=== PATIENT | female | born 1950 | race Caucasian/White ===

== ENCOUNTER → 2018-07-29 11:08 | Outpatient (CLI) | payer MEDICARE, OTHER, SELFPAY ==
--- NOTE | 2018-07-29 | DI.RAD.S_ITS ---
PROCEDURE: XR LUMBAR SPINE 6V W BENDING INDICATIONS: Pain in left hip TECHNIQUE: 7 views of the lumbar spine acquired. COMPARISON: None. FINDINGS: Bones: 5 nonrib-bearing vertebrae are present. There is normal bony alignment. No vertebral body compression fractures. No suspicious bony lesions. There is moderately severe to severe degenerative disc disease and facet osteoarthritis along the lumbosacral spine which is moderately severe over the upper half and near severe over the lower half of the LS spine. This is most pronounced at L5-S1 where near [id number] plate articulation is present. Facet osteoarthritis can be seen from L3-S1 as moderately severe. Significant spinal and foraminal stenosis likely is present but no compression fractures found. Soft tissues: Overlying bowel gas pattern is normal. No suspicious soft tissue calcifications. Flexion/extension: There is normal range of motion, with preserved normal alignment. IMPRESSION: Moderately severe to severe degenerative disc disease along the LS spine, more prominently over the lower half of the LS spine. No compression fracture is associated. Multilevel spinal and foraminal stenosis likely is present and followup by MR scanning if intervention is anticipated likely is warranted. Dictated by: Finn Correa M.D. on 07/29/2018 at 12:31 Approved by: Finn Correa M.D. on 07/29/2018 at 12:33
--- NOTE | 2018-07-29 | DI.RAD.S_ITS ---
PROCEDURE: XR HIP W PEL IF DONE BILAT 2V INDICATIONS: Pain in left hip TECHNIQUE: AP pelvis with lateral view(s) of the bilateral hip(s). COMPARISON: None. FINDINGS: Bones: No fractures or dislocations. Pelvic ring appears intact. No suspicious bony lesions. Degenerative hip joint space narrowing is moderate in severity bilaterally very slightly greater on the left than the right. Soft tissues: The visualized bowel gas pattern is normal. No suspicious soft tissue calcifications. IMPRESSION: No trauma found. Moderate bilateral hip joint osteoarthritis slightly greater on the left than the right. Dictated by: Finn Correa M.D. on 07/29/2018 at 12:35 Approved by: Finn Correa M.D. on 07/29/2018 at 12:36
== END ==
PROVIDERS: PCP Family Medicine; Visit Provider Family Medicine
DX: M25.552 Pain in left hip (principal); M16.0 Bilateral primary osteoarthritis of hip; M51.37 Other intervertebral disc degeneration, lumbosacral region; M47.817 Spondylosis without myelopathy or radiculopathy, lumbosacral region; M47.816 Spondylosis without myelopathy or radiculopathy, lumbar region; M41.9 Scoliosis, unspecified
CPT/HCPCS: 72114; 73521

== ENCOUNTER → 2019-04-26 13:32 | Outpatient (CLI) | payer MEDICARE, OTHER, SELFPAY ==
--- NOTE | 2019-04-26 | DI.MRI.S_ITS ---
PROCEDURE: MR HEAD/BRAIN WO/W CON INDICATIONS: Dizziness and giddiness TECHNIQUE: Noncontrast axial T1 spin echo, axial T2 fast spin echo, sagittal and axial FLAIR, coronal T2 fast spin echo, axial gradient echo, axial diffusion and ADC through the brain. After the administration of contrast, axial and coronal T1 spin echo with fat saturation through the brain. COMPARISON: None. FINDINGS: Image quality: Excellent. CSF spaces: Basal cisterns are patent. No extra-axial fluid collections. Ventricles are normal in size and shape. Brain: No midline shift. No intracranial bleeds or masses. No abnormal intracranial enhancement. There is mild cerebral volume loss for age. The brainstem appears normal. Diffusion-weighted images demonstrate no acute ischemic insults. No chronic ischemic insults. Normal intravascular flow voids are present. Skull and face: Calvarial marrow is normal in signal. Orbits appear normal. Sinuses: Sinuses and mastoids appear clear. IMPRESSION: 1. No acute intracranial disease process. 2. No abnormal intracranial mass or suspicious postcontrast enhancement. 3. No abnormal intracranial signal. Dictated by: Mary Ann Schilling MD, PhD on 04/26/2019 at 15:29 Approved by: Mary Ann Schilling MD, PhD on 04/26/2019 at 15:32
== END ==
PROVIDERS: PCP Family Medicine; Referring Provider Family Medicine; Visit Provider Family Medicine
DX: R42 Dizziness and giddiness (principal); R41.3 Other amnesia; R25.1 Tremor, unspecified
CPT/HCPCS: 70553; A9579

== ENCOUNTER → 2019-10-18 12:36 | Outpatient (CLI) | payer MEDICARE, OTHER, SELFPAY | PROVIDERS: PCP Family Medicine; Referring Provider Family Medicine; Visit Provider Family Medicine | DX: Z13.820 Encounter for screening for osteoporosis; Z78.0 Asymptomatic menopausal state; M85.851 Other specified disorders of bone density and structure, right thigh; Z87.891 Personal history of nicotine dependence | CPT/HCPCS: 77080 ==

== ENCOUNTER → 2019-11-26 11:41 | Outpatient (CLI) | payer MEDICARE, OTHER, SELFPAY ==
--- NOTE | 2019-11-26 | DI.MRI.S_ITS ---
PROCEDURE: MR HEAD/BRAIN WO CON INDICATIONS: Other amnesia TECHNIQUE: Non-contrast axial T1 spin echo, axial T2 fast spin echo, sagittal and axial FLAIR, coronal T2 fast spin echo, axial gradient echo, axial diffusion and ADC through the brain. COMPARISON: [facility], , MR HEAD/BRAIN WO/W CON, 04/26/2019, 13:57. FINDINGS: Image quality: Excellent. CSF spaces: Ventricles appear symmetric in size and shape. Basal cisterns are patent. No extra-axial fluid collections. Brain: No intracranial bleeds or mass effects. There is cerebral volume loss for age. There are periventricular and deep white matter chronic small vessel ischemic changes. Brainstem appears normal. Diffusion-weighted images show no acute ischemic insults. No chronic ischemic insults. Normal intravascular flow voids are present. Skull and face: Calvarial bone marrow is normal in signal. Orbits are normal. Sinuses: Sinuses and mastoids are clear. IMPRESSION: 1. No explanation for amnesia. 2. No acute process. No recent infarct. Dictated by: Lisa Melgoza M.D. on 11/26/2019 at 13:52 Approved by: Lisa Melgoza M.D. on 11/26/2019 at 13:53
== END ==
PROVIDERS: PCP Family Medicine; Referring Provider Family Medicine; Visit Provider Psychiatry & Neurology Neurology
DX: G20 Parkinson's disease (principal); R41.3 Other amnesia; R20.0 Anesthesia of skin
CPT/HCPCS: 70551

== ENCOUNTER → 2022-01-01 11:25 | Outpatient (CLI) | payer MEDICARE, OTHER, SELFPAY ==
--- NOTE | 2022-01-01 | DI.MG.S_ITS ---
BILATERAL DIGITAL DIAGNOSTIC MAMMOGRAM 3D/2D: 01/01/2022 CLINICAL: Additional evaluation requested from prior study. Comparison is made to exam dated: 11/12/2021 mammogram - outside. Both breasts are heterogeneously dense, which may obscure small masses (category c / 51-75% glandular tissue). There is an irregular equal density focal asymmetry with an obscured margin and grouped punctate calcifications in the right breast at 8 o'clock anterior depth. This is seen in additional views. There is skin thickening associated with the focal asymmetry. There are 0.4 cm grouped punctate calcifications in the left breast at 3 o'clock posterior depth. No other significant masses or calcifications are seen in either breast. IMPRESSION: INCOMPLETE: NEEDS ADDITIONAL IMAGING EVALUATION The irregular equal density focal asymmetry in the right breast at 8 o'clock anterior depth is indeterminate. An ultrasound is recommended. The 0.4 cm grouped punctate calcifications in the left breast at 3 o'clock posterior depth are probably benign. A follow-up mammogram in 6 months is recommended. Based on the Tyrer Cuzick model (a risk assessment model) the patient's lifetime risk is 5.5% and her 10 year risk is 4.1%. According to the ACR, ACS, and NCCN guidelines, an annual breast MRI exam along with mammogram is recommended if the patient's lifetime risk is 20% or greater. This exam was interpreted at Station ID: [id number]. NOTE: For mammograms, a report in lay terms will be sent to the patient. Approximately 15% of breast malignancies will not be visualized mammographically. In the management of a palpable breast mass, a negative mammogram must not discourage biopsy of a clinically suspicious lesion. Electronically Signed By: Joe gould/yusra:01/01/2022 16:30:00 ACR BI-RADS Category 0: Incomplete 3340F
--- NOTE | 2022-01-01 | DI.US.S_ITS ---
LIMITED ULTRASOUND OF RIGHT BREAST AND AXILLA: 01/01/2022 CLINICAL: Patient returns today to evaluate a focal asymmetry in the right breast. Comparison is made to exams dated: 01/01/2022 mammogram - [facility] and 11/12/2021 mammogram - outside. Color flow ultrasound of the right breast 8-9 o'clock, and axilla regions was performed. Singh scale images of the real-time examination were reviewed. There is a possible 1.7 cm x 1.1 cm x 0.6 cm irregular mass with an angular margin in the right breast at 9 o'clock anterior depth 3 cm from the nipple. This irregular mass is hypoechoic. This correlates with mammography findings. There are related calcifications. Color flow imaging demonstrates that there is increased vascularity. No significant abnormalities were seen sonographically in the right axilla. IMPRESSION: SUSPICIOUS OF MALIGNANCY The possible 1.7 cm x 1.1 cm x 0.6 cm irregular mass in the right breast is suspicious of malignancy. An ultrasound guided biopsy is recommended. The findings and recommendations were discussed with the patient by the onsite radiologist, Dr. Guillen, at the time of the exam. No significant abnormalities were seen sonographically in the right axilla. Left breast diagnostic mammogram in 6 months is also recommended for follow up of probably benign calcifications in the left breast. If the right breast biopsy is positive for malignancy, the left calcifications may need to undergo biopsy. This exam was interpreted at Station ID: [id number]. Electronically Signed By: Joe Gay M.D. ar/:01/01/2022 16:34:18 letter sent: Biopsy Required Ultrasound BI-RADS: 4 Suspicious for malignancy
== END ==
PROVIDERS: PCP Family Medicine; Referring Provider Family Medicine; Visit Provider Family Medicine
DX: R92.8 Other abnormal and inconclusive findings on diagnostic imaging of breast (principal); N63.15 Unspecified lump in the right breast, overlapping quadrants
CPT/HCPCS: 76642; 77066; G0279

== ENCOUNTER → 2022-02-04 | Outpatient (CLI) | payer MEDICARE, OTHER, SELFPAY ==
--- NOTE | 2022-02-04 | DI.US.S_ITS ---
ULTRASOUND OF RIGHT BREAST: 02/04/2022 CLINICAL: Patient returns today to evaluate an asymmetry in the right breast. Pt came in sched for biopsy but we will follow-up in 3 mos. Comparison is made to exams dated: 01/01/2022 ultrasound, 01/01/2022 mammogram - [facility], and 11/12/2021 mammogram - outside. Color flow and real-time ultrasound of the right breast were performed. No significant abnormalities were seen sonographically in the right breast. The previously seen abnormal hypoechoic area is no longer present. IMPRESSION: PROBABLY BENIGN Previously questioned mass and area of hypoechoic breast tissue is no longer present. A precautionary follow-up ultrasound in 3 months is recommended. This exam was interpreted at Station ID: [id number]. Electronically Signed By: Ace Mercedes M.D. jr/:02/19/2022 16:33:22 letter sent: Followup Recommended Ultrasound BI-RADS: 3 Probably benign
== END ==
PROVIDERS: PCP Family Medicine; Referring Provider Family Medicine; Visit Provider Family Medicine
DX: R92.8 Other abnormal and inconclusive findings on diagnostic imaging of breast (principal); N63.10 Unspecified lump in the right breast, unspecified quadrant
CPT/HCPCS: 76642

== ENCOUNTER → 2022-12-16 12:17 | Outpatient (CLI) | payer MEDICARE, OTHER, SELFPAY ==
--- NOTE | 2022-12-16 | DI.MG.S_ITS ---
BILATERAL DIGITAL DIAGNOSTIC MAMMOGRAM 3D/2D SHORT-TERM FOLLOW-UP: 12/16/2022 CLINICAL: Short term follow up for bilateral breasts. Comparison is made to exams dated: 01/01/2022 mammogram - [facility] and 11/12/2021 mammogram - outside. Both breasts are heterogeneously dense, which may obscure small masses (category c / 51-75% glandular tissue). There is a focal asymmetry in the right breast at 8 o'clock anterior depth. This is not significantly changed. There are stable 0.4 cm grouped punctate calcifications in the left breast at 3 o'clock posterior depth. No other significant masses or calcifications are seen in either breast. IMPRESSION: INCOMPLETE: NEEDS ADDITIONAL IMAGING EVALUATION The focal asymmetry in the right breast at 8 o'clock anterior depth is indeterminate. -A targeted ultrasound is recommended and will immediately follow. The stable 0.4 cm grouped punctate calcifications in the left breast at 3 o'clock posterior depth are probably benign. -A follow-up mammogram in 12 months is recommended to demonstrate long-term stability. Based on the Tyrer Cuzick model (a risk assessment model) the patient's lifetime risk is 5.2% and her 10 year risk is 4.2%. According to the ACR, ACS, and NCCN guidelines, an annual breast MRI exam along with mammogram is recommended if the patient's lifetime risk is 20% or greater. This exam was interpreted at Station ID: [id number]. NOTE: For mammograms, a report in lay terms will be sent to the patient. Approximately 15% of breast malignancies will not be visualized mammographically. In the management of a palpable breast mass, a negative mammogram must not discourage biopsy of a clinically suspicious lesion. Electronically Signed By: Cole Lobo M.D. slc/:12/16/2022 16:54:52 ACR BI-RADS Category 0: Incomplete 3340F
--- NOTE | 2022-12-16 | DI.US.S_ITS ---
LIMITED ULTRASOUND OF RIGHT BREAST AND AXILLA: 12/16/2022 CLINICAL: Short term follow up. Comparison is made to exams dated: 12/16/2022 mammogram, 02/04/2022 ultrasound, 01/01/2022 ultrasound, 01/01/2022 mammogram - [facility], and 11/12/2021 mammogram - outside. Color flow and real-time ultrasound of the right breast axilla were performed. Singh scale images of the real-time examination were reviewed. There is a 0.5 cm cluster of cysts in the right breast at 9 o'clock middle depth 3 cm from the nipple. This cluster of cysts is anechoic. These abnormalities are not significantly changed and correlates with mammography findings. Color flow imaging demonstrates that there is no vascularity present. Adjacent fibroglandular tissue is unchanged. No significant abnormalities were seen sonographically in the right axilla. IMPRESSION: PROBABLY BENIGN The 0.5 cm cluster of cysts in the right breast is probably benign. A follow-up ultrasound in 12 months is recommended to demonstrate long-term stability. Patient will be due for right mammogram at that time. A follow-up left breast ultrasound is also recommended in 12 months for calcifications to demonstrate long-term stability. Exam findings were conveyed to the patient. This exam was interpreted at Station ID: [id number]. Electronically Signed By: Cole Lobo M.D. slc/:12/16/2022 17:12:19 letter sent: Followup Recommended Ultrasound BI-RADS: 3 Probably benign
== END ==
PROVIDERS: PCP Family Medicine; Referring Provider Family Medicine; Visit Provider Family Medicine
DX: R92.8 Other abnormal and inconclusive findings on diagnostic imaging of breast (principal); R92.1 Mammographic calcification found on diagnostic imaging of breast; N60.01 Solitary cyst of right breast
CPT/HCPCS: 76642; 77066; G0279

== ENCOUNTER 2024-04-07 18:49 | Emergency (ER) | payer MEDICARE, OTHER, SELFPAY ==
[2024-04-07] VITALS (8 sets, daily range): BP systolic 123–166; BP diastolic 62–81; PULSE 56–70; RESP 17–24; TEMP 36.6; O2SAT 97–99; BMI 25.1
--- NOTE | 2024-04-07 19:12 | EKG_ITS ---
[address] [address] Test Date: 2024-04-07 Pat Name: Shamar Morin Department: Room: Gender: Female [employer]: : 1950 Requested By: Order Number: [id number] Reading MD: Arnel Ramos MD Measurements Intervals [place] Rate: 58 P: 53 DE: 146 QRS: 22 QRSD: 88 T: 70 QT: 428 QTc: 420 Interpretive Statements Sinus bradycardia Electronically Signed On 04-08-2024 7:29:31 PST by Arnel Ramos MD
[2024-04-07 19:53] LABS: Add Manual Diff / Slide Review NO; Basophils Absolute Auto 100 /uL (0-100); Basophils Percent Auto 0.9 % (0-2); Eosinophils Absolute Auto 100 /uL (0-450); Eosinophils Percent Auto 1.2 % (2-4); Hematocrit 38.5 % (36-46); Hemoglobin 12.8 g/dL (12.0-16.0); Lymphocytes Absolute Auto 1300 /uL (1100-4500); Lymphocytes Percent Auto 18.9 % (25-40); Mean Corpuscular HGB Conc 33.3 % (30-36); Mean Corpuscular Hemoglobin 30.6 PG (26-34); Mean Corpuscular Volume 91.9 fL (80-100); Monocytes Absolute Auto 800 /uL (0-900); Monocytes Percent Auto 11.9 % (3-14); Neutrophils Absolute Auto 4700 /uL (1500-7000); Neutrophils Percent Auto 67.1 % (50-75); Platelet Count 206 X10^3/uL (150-400); Red Blood Cell Count 4.19 X10^6/uL (4.0-5.2); Red Cell Distribution Width 13.9 % (11.6-14.8)
[2024-04-07 19:57] LABS: Alanine Aminotransferase 8 IU/L (<35); Albumin 3.6 g/dL (3.5-5.0); Albumin Globulin Ratio 1.4 (1.0-2.8); Alkaline Phosphatase 89 U/L (38-126); Aspartate Aminotransferase 20 IU/L (14-36); Bilirubin Total 0.5 mg/dL (0.2-1.3); Blood Urea Nitrogen 19 mg/dL (7-17); Carbon Dioxide 31 mmol/L (22-32); Chloride 102 mmol/L (98-107); Estimated Glomerular Filt Rate > 60 mL/min (>60); Globulin 2.6 g/dL (1.7-4.1); Glucose 99 mg/dL (80-110); HEMOLYSIS < 15 (0-50); Lipase 80 U/L (23-300); Potassium 4.4 mmol/L (3.4-5.1); Sodium 136 mmol/L (137-145); Total Protein 6.2 g/dL (6.3-8.2)
--- NOTE | 2024-04-07 22:11 | DI.CT.S_ITS ---
PROCEDURE: CT ABDOMEN PELVIS W CON INDICATIONS: abdominal pain TECHNIQUE: After the administration of intravenous contrast, axial sections acquired from the lung bases to the pubic symphysis. Coronal and sagittal reformats were performed. For radiation dose reduction, the following was used: automated exposure control, adjustment of mA and/or kV according to patient size. COMPARISON: None. FINDINGS: Image quality: Diagnostic Lower chest: Unremarkable lung bases Normal heart size. Liver: Unremarkable Gallbladder and biliary system: Gallbladder is unremarkable. CBD is distended at 9 mm. Pancreas: No ductal dilation. The pancreatic duct is mildly ectatic measuring 3-4 mm at the head, possibly senescent Spleen: Nonenlarged Adrenals: Bilateral adrenal thickening possibly hypertrophy Kidneys: No solid mass or hydronephrosis. Vessels and lymph nodes: Main portal vein is patent. No abdominal aortic aneurysm. Tortuous aorta. No pathologic lymph nodes by size criteria Bowel and peritoneum: There is rhrn-vi-citmhmtu wall thickening of the stomach, not well assessed due to under distension. There is no acute small bowel obstruction. Significant wall thickening seen in the rectum, with perirectal edematous fat stranding. There is large upstream fecal loading. Incidentally noted mild mesenteric rotation is seen in the ileocolic region (coronal image 31), but without dilated bowel or significant edema. No ascites. Body wall: Unremarkable Pelvis: Bladder is unremarkable. Reproductive organs are unremarkable on limited CT evaluation. Bones: Degenerative changes. Nonacute appearing rib fractures are present. IMPRESSION: Moderate findings of proctitis, with wall thickening and perirectal edematous fat stranding. There is large upstream fecal loading in the colon. Possible additional findings of gastritis, but not well assessed due to under distension. Consider endoscopy correlation if clinically indicated. Mildly distended CBD. Correlate LFTs. MRCP can evaluate further if abnormal. Central mesenteric mild rotation is incidentally seen (coronal image 31), without acute edema or surrounding obstructed bowel. Other findings above. Dictated by: Jose Antonio Cm M.D. on 04/07/2024 at 22:50 Approved by: Jose Antonio Cm M.D. on 04/07/2024 at 22:57
[2024-04-07] MEDS: LORazepam 2 MG/ML INJ 0.5 MG IV (22:31)
[2024-04-07] MEDS: ONDANSETRON 4 MG/2 ML INJ IV (22:31)
--- NOTE | 2024-04-08 01:33 | ED_ITS ---
HPI - General Adult General Chief complaint: Abdominal Pain Stated complaint: Abd Pain Time Seen by Provider: 04/07/24 19:23 Source: family and EMS Mode of arrival: EMS History of Present Illness HPI narrative: 74-year-old female who has current resident at [facility], history of dementia, takes carbidopa levodopa medication, noted by [facility] staff to have nausea and vomiting tonight, unclear number of episodes, no reported black or red color, no fall or trauma known. No other symptoms known, no historian currently available at bedside. Related Data Home Medications Medication Instructions Recorded Confirmed vitamin D3 94.38 mcg (3,775 ##0 03/28/16 unit)-folic acid 1 mg capsule (Ciferex) carbidopa 25 mg-levodopa 100 mg 2 tab PO 4XD 04/07/24 04/07/24 tablet donepezil 5 mg tablet 5 mg PO BEDTIME 04/07/24 04/07/24 lorazepam 0.5 mg tablet 0.5 mg PO PRN PRN Agitation 04/07/24 04/07/24 memantine 10 mg tablet 10 mg PO BID 04/07/24 04/07/24 quetiapine 25 mg tablet 25 mg PO PRN PRN Agitation 04/07/24 04/07/24 Previous Rx's Medication Instructions Recorded lisinopril 10 mg tablet 10 mg PO QAM #90 tabs 03/28/16 typhoid vaccin,live,attenuated 2 4 cap PO SEE INSTRUCTIONS #4 caps 03/28/16 billion unit capsule,delayed release (Vivotif Sarahi Vaccine) amoxicillin 875 mg-potassium 1 tab PO BID #20 tabs 04/08/24 clavulanate 125 mg tablet lactulose 10 gram/15 mL oral 20 g (30 mL) PO BID #300 mL 04/08/24 solution lactulose 10 gram/15 mL oral 20 g (30 mL) PO BID #300 mL 04/08/24 solution ondansetron 4 mg disintegrating 4 mg PO Q6H PRN nausea and 04/08/24 tablet vomiting #7 tabs Allergies Allergy/AdvReac Type Severity Reaction Status Date / Time No Known Drug Allergies Allergy Verified 04/07/24 22:20 Exam Narrative Exam Narrative: GENERAL: Well-developed patient, in mild distress. HEAD: Atraumatic. Normocephalic. EYES: Pupils equal round and reactive. Extraocular motions intact. No scleral icterus. No injection or drainage. ENT: Nose without bleeding, purulent drainage. Throat without erythema, tonsillar hypertrophy or exudate. Airway patent. NECK: Trachea midline. Non tender CARDIOVASCULAR: Regular rate and rhythm without murmurs, gallops, or rubs. RESPIRATORY: Clear to auscultation. Breath sounds equal bilaterally. No wheezes, rales, or rhonchi. GASTROINTESTINAL: Abdomen soft, non-tender, nondistended. EXTREMITIES: No edema or joint tenderness. BACK: Nontender without deformity or crepitance. No flank tenderness. NEURO: AOx3. Resting tremor noted bilateral upper extremities. Motor functions grossly nonfocal. SKIN: No rash or erythema of visible areas Initial Vital Signs Initial Vital Signs: Vital Signs Temperature 97.8 F 04/07/24 18:57 Pulse Rate 61 04/07/24 18:57 Respiratory Rate 20 04/07/24 18:57 Blood Pressure 123/62 04/07/24 18:57 Pulse Oximetry 97 04/07/24 18:57 Oxygen Delivery Method Room Air 04/07/24 18:57 Course Orders Ordered: ED Orders 04/07/24 22:11 CT abdomen pelvis w con Stat Discontinued Medications Amoxicillin/Clavulanate Potassium (Amoxicillin/Clav 875/125 Mg) 1 tab PO NOW ONE Stop: 04/08/24 01:46 Last Admin: 04/08/24 01:55 Dose: 1 tab Documented By: RACHELL Lactulose (Lactulose 20 Gm/30 Ml Solution) 20 gm PO NOW ONE Stop: 04/08/24 01:46 Last Admin: 04/08/24 01:55 Dose: 20 gm Documented By: RACHELL Lorazepam (Lorazepam 2 Mg/Ml Inj) 0.5 mg IV NOW ONE Stop: 04/07/24 22:12 Last Admin: 04/07/24 22:31 Dose: 0.5 mg Documented By: ANGELIA Lorazepam (Lorazepam 2 Mg/Ml Inj) 0.5 mg IV NOW ONE Stop: 04/08/24 01:26 Last Admin: 04/08/24 01:42 Dose: 0.5 mg Documented By: MANISH Ondansetron HCl (Ondansetron 4 Mg/2 Ml Inj) 4 mg IV NOW PRN PRN Reason: Nausea And Vomiting Last Admin: 04/07/24 22:31 Dose: 4 mg Documented By: ANGELIA Ondansetron HCl (Ondansetron 4 Mg Odt) 4 mg PO NOW PRN PRN Reason: Nausea And Vomiting Vital Signs Vital signs: Vital Signs - 8 hr 04/08/24 03:36 Temperature 97.8 F Pulse Rate 60 Respiratory Rate 16 Blood Pressure 145/80 H Pulse Oximetry 99 Oxygen Delivery Method Room Air Medical Decision Making Lab Data Lab results reviewed: Yes I reviewed the patient's lab results. Lab results narrative: White blood cell count 7000, hemoglobin 12.8, platelets adequate. Sodium 136, otherwise basic metabolic panel unremarkable. Liver functions and lipase normal. Urine dip negative. 04/07/24 19:38 04/07/24 19:38 Labs: Lab Results 04/07/24 Range/Units 19:38 WBC 7.0 (4.5-11.0) X10^3/uL RBC 4.19 (4.0-5.2) X10^6/uL Hgb 12.8 (12.0-16.0) g/dL Hct 38.5 (36-46) % MCV 91.9 (80-100) fL MCH 30.6 (26-34) PG MCHC 33.3 (30-36) % RDW 13.9 (11.6-14.8) % Plt Count 206 (150-400) X10^3/uL Neut % (Auto) 67.1 (50-75) % Lymph % (Auto) 18.9 L (25-40) % [place] % (Auto) 11.9 (3-14) % Eos % (Auto) 1.2 L (2-4) % Baso % (Auto) 0.9 (0-2) % Neut # (Auto) 4700 (9747-3180) /uL Lymph # (Auto) 1300 (7788-0369) /uL [place] # (Auto) 800 (0-900) /uL Eos # (Auto) 100 (0-450) /uL Baso # (Auto) 100 (0-100) /uL Sodium 136 L (137-145) mmol/L Potassium 4.4 (3.4-5.1) mmol/L Chloride 102 (98-107) mmol/L Carbon Dioxide 31 (22-32) mmol/L BUN 19 H (7-17) mg/dL Creatinine 0.76 (0.52-1.04) mg/dL Estimated GFR > 60 (>60) mL/min BUN/Creatinine Ratio 25.0 H (6-22) Glucose 99 (80-110) mg/dL Calcium 9.0 (8.4-10.2) mg/dL Total Bilirubin 0.5 (0.2-1.3) mg/dL AST 20 (14-36) IU/L ALT 8 (<35) IU/L Alkaline Phosphatase 89 (38-126) U/L Total Protein 6.2 L (6.3-8.2) g/dL Albumin 3.6 (3.5-5.0) g/dL Globulin 2.6 (1.7-4.1) g/dL Albumin/Globulin Ratio 1.4 (1.0-2.8) Lipase 80 (23-300) U/L Urine Dip Bedside Urine Glucose Negative Bedside Urine Bilirubin - Negative Bedside Urine Ketone - Negative Urine Specific [place] 1.005 Bedside Urine Occult Blood - Negative Bedside Urine pH 7.5 Bedside Urine Protein - Negative Bedside Urine Urobilinogen - Negative Bedside Urine Nitrite - Negative Bedside Urine Leukocytes - Negative Esterase Point of care testing: Urine Dip Bedside Urine Glucose Negative Bedside Urine Bilirubin - Negative Bedside Urine Ketone - Negative Urine Specific [place] 1.005 Bedside Urine Occult Blood - Negative Bedside Urine pH 7.5 Bedside Urine Protein - Negative Bedside Urine Urobilinogen - Negative Bedside Urine Nitrite - Negative Bedside Urine Leukocytes - Negative Esterase Imaging Data CT scan - abdomen/pelvis: Radiologist's Impression: [place] [address] CT Scan Report Signed Patient: Shamar Morin MR#: [id number] : 1950 Acct:[id number] Age/Sex: 74 / F Date of Service: 04/07/24 Loc: ED Accession Number: [id number] Procedure: CT abdomen pelvis w con Ordering Provider: William Guerrero MD PROCEDURE: CT ABDOMEN PELVIS W CON INDICATIONS: abdominal pain TECHNIQUE: After the administration of intravenous contrast, axial sections acquired from the lung bases to the pubic symphysis. Coronal and sagittal reformats were performed. For radiation dose reduction, the following was used: automated exposure control, adjustment of mA and/or kV according to patient size. COMPARISON: None. FINDINGS: Image quality: Diagnostic Lower chest: Unremarkable lung bases Normal heart size. Liver: Unremarkable Gallbladder and biliary system: Gallbladder is unremarkable. CBD is distended at 9 mm. Pancreas: No ductal dilation. The pancreatic duct is mildly ectatic measuring 3-4 mm at the head, possibly senescent Spleen: Nonenlarged Adrenals: Bilateral adrenal thickening possibly hypertrophy Kidneys: No solid mass or hydronephrosis. Vessels and lymph nodes: Main portal vein is patent. No abdominal aortic aneurysm. Tortuous aorta. No pathologic lymph nodes by size criteria Bowel and peritoneum: There is [id number] wall thickening of the stomach, not well assessed due to under distension. There is no acute small bowel obstruction. Significant wall thickening seen in the rectum, with perirectal edematous fat stranding. There is large upstream fecal loading. Incidentally noted mild mesenteric rotation is seen in the ileocolic region (coronal image 31), but without dilated bowel or significant edema. No ascites. Body wall: Unremarkable Pelvis: Bladder is unremarkable. Reproductive organs are unremarkable on limited CT evaluation. Bones: Degenerative changes. Nonacute appearing rib fractures are present. IMPRESSION: Moderate findings of proctitis, with wall thickening and perirectal edematous fat stranding. There is large upstream fecal loading in the colon. Possible additional findings of gastritis, but not well assessed due to under distension. Consider endoscopy correlation if clinically indicated. Mildly distended CBD. Correlate LFTs. MRCP can evaluate further if abnormal. Central mesenteric mild rotation is incidentally seen (coronal image 31), without acute edema or surrounding obstructed bowel. Other findings above. Dictated by: Jose Antonio Cm M.D. on 04/07/2024 at 22:50 Approved by: Jose Antonio Cm M.D. on 04/07/2024 at 22:57 ECG Data Attestation: I personally reviewed and interpreted this ECG as follows: Interpretation: Sinus bradycardia with rate 58, no obvious ST segment elevation or depression changes. NC 146, QRS 88, QTC 420. [facility] Narrative Medical decision making narrative: 74-year-old female with dementia at [facility] unit noted by staff to have vomiting and complaint of lower extremity discomfort. For me she denies any abdominal discomfort, says she has not feel nauseated, does not seem to know why she is here. Does not seem to have any tenderness on anterior abdominal exam at this time. Afebrile, sirs screen negative. Labs pending sent from triage. CT abdomen and pelvis had been ordered. Results pending. Screening labs unremarkable, no white blood cell count elevation. Unremarkable LFTs and lipase, urine dip negative. CT abdomen and pelvis with IV contrast. Impressions: ?Moderate findings of proctitis, with wall thickening and perirectal edematous fat stranding. There is a large upstream fecal loading in the colon. Possible additional findings of gastritis, but not well assessed due to underdistention. Consider endoscopy correlation if clinically indicated. Mildly distended CBD. Correlate LFTs. MRCP can evaluate further if abnormal. Central mesenteric mild rotation is incidentally seen, without acute edema or surrounding obstructive bowel.. See radiology report LFTs were unremarkable, also no significant mid upper or lower anterior abdominal tenderness, no indication to pursue MRCP at this time for mildly distended CBD on CT scanning. Proctitis changes noted on CT, some proximal colonic stool without obstruction noted. Oral Augmentin, oral lactulose. We will discharge patient on oral Augmentin and lactulose course. Discharged home via EMS back to [facility]. Follow up with [facility] medical personnel, and/or PCP in close follow up. Return precautions discussed. Home with family. Discharge Plan Departure Patient Disposition: Home Clinical Impression: Acute proctitis, Constipation Activity Restrictions/Additional Instructions: 74-year-old female resident of [facility], history of dementia, noted by staff to have nausea and vomiting and complained of abdominal pain. Patient denies abdominal pain here. Screening labs were unremarkable. CT abdomen and pelvis showed proctitis changes, no abscess, no bowel obstruction changes, but some colonic stool suggestive of possible component of constipation if this is contributing to her discomfort. Trial of antibiotic Augmentin, 1st dose given in the emergency department, prescription printed for further refills 10 day course therapy. Trial of lactulose laxative oral regimen, 1st dose given in the emergency department, prescription printed for further treatment if needed. Prescription for ondansetron if needed to control nausea vomiting symptoms, prescription printed for refill to use if needed. Reassess by regular provider suggested in the next couple of days. Return to this/nearest emergency department for any change worsening symptoms or any concerns prior. Take chronic medications as directed. Prescriptions: New lactulose 10 gram/15 mL solution 20 g PO BID Qty: 300 0RF amoxicillin-pot clavulanate 875-125 mg tablet 1 tab PO BID Qty: 20 0RF lactulose 10 gram/15 mL solution 20 g PO BID Qty: 300 0RF ondansetron 4 mg tablet,disintegrating 4 mg PO Q6H PRN (Reason: nausea and vomiting) Qty: 7 0RF No Action vitamin D3-folic acid [Ciferex] 3,775 unit- 1 mg capsule Qty: 0 lisinopril 10 MG tablet 10 mg PO QAM Qty: 90 3RF typhoid vaccin,live,attenuated [Vivotif Sarahi Vaccine] 1 EACH capsule,delayed release(DR/EC) 4 cap PO SEE INSTRUCTIONS Qty: 4 0RF quetiapine 25 mg tablet 25 mg PO PRN PRN (Reason: Agitation) carbidopa-levodopa 25-100 mg tablet 2 tab PO 4XD Patient Comments: [NO ORIGINAL SIG] donepezil 5 mg tablet 5 mg PO BEDTIME lorazepam 0.5 mg tablet 0.5 mg PO PRN PRN (Reason: Agitation) Patient Comments: [NO ORIGINAL SIG] Rx Instructions: 1 tab by mouth every 4 hours as needed memantine 10 mg tablet 10 mg PO BID Referrals: Jose Flores MD [Primary Care Provider] - Stand Alone Forms: Patient Portal/API/Survey
--- NOTE | 2024-04-08 01:39 | PC.NURSE ---
Pt with dementia. Pt woke confused, agitated. Multiple attempts to climb out of bed. Attempts to reorient unsuccessful. Pt takes ativan prn anxiety at skilled nursing. Dr Guerrero notified of above, verbal order received to repeat ativan dose.
[2024-04-08] MEDS: LORazepam 2 MG/ML INJ 0.5 MG IV (01:42)
[2024-04-08] MEDS: LACTULOSE 20 GM/30 ML SOLUTION PO (01:55)
[2024-04-08] MEDS: AMOXICILLIN/CLAV 875/125 MG 1 TAB PO (01:55)
--- NOTE | 2024-04-08 03:11 | PC.NURSE ---
Report called to Ksenia at [facility]
[2024-04-08 03:36] VITALS: BP 145/80; PULSE 60; RESP 16; TEMP 36.6; O2SAT 99
== END 2024-04-08 03:40 | disposition home or self-care (01) ==
PROVIDERS: Emergency Provider Emergency Medicine; PCP Family Medicine
DX: K62.89 Other specified diseases of anus and rectum (principal); K59.00 Constipation, unspecified; R11.10 Vomiting, unspecified; F03.90 Unspecified dementia, unspecified severity, without behavioral disturbance, psychotic disturbance, mood disturbance, and anxiety; R00.1 Bradycardia, unspecified
CPT/HCPCS: 36415; 74177; 80053; 81003; 83690; 85025; 93005; 93010; 96374; 96375; 96376; 99284; 99285; J2060; J2405; Q9967

== ENCOUNTER → 2024-04-22 17:57 | Outpatient (ROUT) | payer MEDICARE, OTHER, SELFPAY ==
[2024-04-22 18:20] LABS: Bilirubin Urine UA NEGATIVE (NEGATIVE); Glucose Urine UA NEGATIVE (Negative); Ketones Urine UA TRACE (NEGATIVE); Leukocyte Esterase Urine UA TRACE (NEGATIVE); Nitrite Urine UA NEGATIVE (Negative); Occult Blood Urine UA NEGATIVE (Negative); Protein Urine UA NEGATIVE (Negative); Specific Gravity Urine UA >=1.030 (1.000-1.035); Urobilinogen Urine UA 0.2 E.U./dL (0.2)
[2024-04-22 18:22] LABS: pH Urine UA 5.5 (4.5-8.0)
[2024-04-22 18:23] LABS: Appearance Urine UA SL CLOUDY; Color Urine UA YELLOW
[2024-04-22 18:32] LABS: Bacteria Urine Many (>30); Calcium Oxalate Crystals Urine Moderate; Culture Indicated Urine Specimen Cultured; RBC Urine 0-1/HPF (0-5/HPF); Squamous Epithelial Cell Urine 0-1 /HPF (0-5/HPF); Urine Volume 10mL (spun); WBC Urine 1-5/HPF (0-5/HPF)
== END ==
PROVIDERS: PCP Family Medicine; Visit Provider Registered Nurse
DX: R30.1 Vesical tenesmus (principal)
CPT/HCPCS: 81001; 87077; 87086; 87186